=== PATIENT | male | born 1995 | race African-American/Black ===

== ENCOUNTER 2021-12-15 03:23 | Emergency (ER) | payer OTHER ==
[~2021-12-15] VITALS: Ht 175.3 cm; Wt 90.0 kg
[2021-12-15] MEDS ORDERED: IBUPROFEN 800MG TABLET PO ONE (04:15)
[2021-12-15 04:35] VITALS: BP 139/99
[2021-12-15] MEDS ORDERED: IBUP-2029 MT (05:30)
== END 2021-12-15 05:38 | disposition home or self-care (01) ==
LOC: ER 03:23
DX: S70.01XA Contusion of right hip, initial encounter (principal); W18.30XA Fall on same level, unspecified, initial encounter; Y93.89 Activity, other specified; Y92.89 Other specified places as the place of occurrence of the external cause; Y99.8 Other external cause status
CPT/HCPCS: 73522; 99283